=== PATIENT | female | born 1940 | race Caucasian/White ===

== ENCOUNTER 2017-05-08 05:36 | Day surgery (SDC) | payer MEDICARE, OTHER ==
[2017-05-08] MEDS ORDERED: CEFAZOLIN/Water 2 GM/20 ML SYRINGE ONE (06:08)
[2017-05-08] MEDS ORDERED: Tranexamic Acid 1,000 MG/100 ML BAG ONE (06:09)
[2017-05-08 06:15] LABS: Bilirubin Negative (Negative); Blood, Urine Negative (Negative); Clarity CLEAR (Clear); Glucose, Urine (Dipstick) Negative (Negative); Leukocyte Negative (Negative); Nitrite Negative (Negative); Protein, Urine (Dipstick) Negative (Neg-Trace); Specific Gravity, Urine 1.019 (1.002-1.036); Urobilinogen 0.2 mg/dL (0.2-1.0)
[2017-05-08] MEDS ORDERED: Vancomycin HCl 1.5 GM in Sodium Chloride 0.9% 250 ML 300 ML IVPB SCH ×2 (06:15→18:00)
[2017-05-08 06:18] LABS: Bacteria/HPF None Seen HPF (None Seen); Hyaline Casts/LPF 0-3 HYALINE CAST LPF (0-3 Hyaline); Pathc Cast-AUWi Flag 0.27 (0-2.49); RBC/HPF 0-3 HPF (0-3); WBC/HPF 0-3 HPF (0-3)
[2017-05-08] MEDS ORDERED: Fentanyl 100 MCG/2 ML VIAL ONE ×2 (06:24→06:26)
[2017-05-08] MEDS ORDERED: Midazolam HCl 2 mg/2 ml Vial ONE ×2 (06:24→06:26)
[2017-05-08] MEDS ORDERED: Bupivacaine PF 0.5% 30 ML VIAL ONE ×2 (06:37→11:51)
[2017-05-08] MEDS ORDERED: traMADol HCl 50 MG TAB PO PRN ×2 (07:08)
[2017-05-08] MEDS ORDERED: Zolpidem Tartrate 5 MG TAB PO PRN ×2 (07:08→09:16)
[2017-05-08] MEDS ORDERED: Promethazine HCl 25 MG/ML VIAL IM PRN ×3 (07:08→09:37)
[2017-05-08] MEDS ORDERED: Ondansetron HCl/PF 4 MG/2 ML Vial IVP PRN ×3 (07:08→09:37)
[2017-05-08] MEDS ORDERED: Acetaminophen 500 MG TAB PO PRN (07:08)
[2017-05-08] MEDS ORDERED: BUPIVACAINE IM SCH (07:15)
[2017-05-08] MEDS ORDERED: SODIUM CHLORIDE IM SCH (07:15)
[2017-05-08] MEDS ORDERED: ADMIXTURE FEE IM SCH (07:15)
[2017-05-08] MEDS ORDERED: diphenhydrAMINE 25 MG CAP PO PRN (09:16)
[2017-05-08] MEDS ORDERED: HYDROcodone/Acetaminophen 10/325 mg Tablet PO PRN ×2 (09:16)
[2017-05-08] MEDS ORDERED: Acetaminophen 325 MG TAB PO PRN (09:16)
[2017-05-08] MEDS ORDERED: Tranexamic Acid 1,000 MG in Sodium Chloride 0.9% 100 ML IVPB SCH (09:30)
[2017-05-08] MEDS ORDERED: Promethazine HCl 25 MG/ML VIAL SLOW IVP PRN (09:37)
[2017-05-08] MEDS ORDERED: HYDROmorphone 2 MG/ML VIAL SLOW IVP PRN (09:37)
--- NOTE | 2017-05-08 09:43 | OP ---
DATE OF PROCEDURE: 05/08/2017 PREOPERATIVE DIAGNOSIS: Right knee osteoarthrosis. POSTOPERATIVE DIAGNOSIS: Right knee osteoarthrosis. PROCEDURE PERFORMED: Right total knee arthroplasty using [employer] pinless navigation. SURGEON: Erlin Beckham M.D. ALIGNMENT MECHANIC: Toi Jones PA-C as well as Rula Rodrigues PA-C. BLOOD LOSS: Minimal. COMPLICATIONS: None. ANESTHESIA: She had a preoperative block. She had general anesthetic. DISPOSITION: She went to the recovery room in stable condition. IMPLANTS: To the right knee. The [employer] total knee system, the femur was size 4 cruciate retaining. Tibial baseplate was universal size 3. We used a 3 x 9 mm CSX3 tibial bearing and a sym metric 27 x 8 X3 patella. CONDITION: She did go to recovery room in stable condition. INDICATIONS: A 76-year-old female, who comes in complaining of right knee pain as well as stiffness. Patient at this time has failed all nonoperative treatment for knee arthritis and at this time wish ed to have knee replacement. PROCEDURE IN DETAIL: After all appropriate consent forms were explained and signed, the patient was taken back to the Operating Room and at this time was given general anesthetic. Once the level of an esthesia was appropriate, a well-padded tourniquet was placed on the right leg and the leg was then p repped and draped in standard surgical fashion. The limb was exsanguinated and tourniquet taken up t o 300 mmHg. Midline incision was made with a 10-blade down through the skin and subcutaneous tissue. Bovie electrocautery was used to coagulate any brisk venous bleeding. A new blade was used to make a medial parapatellar arthrotomy. Small subperiosteal release was performed medially and excess fat pad was removed. The knee was flexed up to gain access to the femur. The femur was navigated and d istal femoral resection was made. Epicondylar access was used to align our sizing jig and this was p inned in place. We sized our femur to be a size 4, 4:1 cutting block was applied and pinned. Anterio r and posterior chamfer cuts were then made. We navigated out our proximal tibia and made our proxim al tibial resection. Spreaders were used to remove any posterior osteophytes off the back of the fem ur as well as remaining meniscal tissue. A long alignment clarisa was then used to achieve correct rotat ion of our tibial baseplate and a size 3 was chosen. This was pinned in place. We trialed the polye thylene and a 3 x 9 mm CSX3 polyethylene gave us full extension and good stability throughout range o f motion. Two towel clips and a saw were used to cut our patella. Three lug nuts were drilled and a 27 x 8 X3 patella was trialed which sat nicely in the trochlear groove. We then drilled our femur a nd punched our tibia. All components were removed. The knee was thoroughly irrigated and dried. Ce ment was mixed into the cement gun on the back table. Components were then placed. The knee was hel d out in full extension until the cement had dried. All excess bone cement was removed. Multiple #2 Vicryl stitches as well as a Quill was used to close our extensor mechanism. 0 Quill followed by a running Monoderm was then used to close the skin. Surgicel glue was then used on the skin. Once thi s had dried, soft tissue dressing was applied to the limb, tourniquet was let down, and the toes pink ed up nicely. The patient was then awakened and taken to the Recovery Room in stable condition. All counts were correct at the end of the case. The patient did receive preoperative IV antibiotics. T he patient was injected with Exparel for postoperative pain relief.
[2017-05-08] MEDS: Ketorolac Tromethamine 30 MG/ML VIAL IVP SCH ×2 (11:34→16:59)
[2017-05-08] MEDS: Sodium Chloride 0.9% 1,000 ML IV SCH ×2 (11:37→21:23)
[2017-05-08] MEDS ORDERED: Bupivacaine 0.25% 10 ML VIAL ONE (11:51)
[2017-05-08] MEDS ORDERED: Lidocaine 1% PF 5 ML VIAL ONE (11:52)
[2017-05-08] MEDS ORDERED: Ondansetron HCl/PF 4 MG/2 ML Vial ONE (11:52)
[2017-05-08] MEDS ORDERED: Dexamethasone 20 MG/5 ML VIAL ONE (11:52)
[2017-05-08] MEDS ORDERED: PHENYLEPHRINE-NS 100 MCG/ML 10 ML SYRINGE ONE (11:52)
[2017-05-08] MEDS ORDERED: Propofol 200 MG/20 ML VIAL ONE (11:52)
[2017-05-08] MEDS ORDERED: ePHEDrine/0.9% NaCl/PF SYRINGE 50 mg/10 ml ONE (11:52)
[2017-05-08 11:54] VITALS: BMI 34.0
[2017-05-08] MEDS: CEFAZOLIN/Water 2 GM/20 ML SYRINGE SLOW IVP SCH ×2 (14:28→21:56)
[2017-05-08] MEDS ORDERED: Dextrose 50% Abboject 50 ML SYRINGE SLOW IVP PRN (14:32)
[2017-05-08] MEDS ORDERED: HumaLOG 300 UNITS/3 ML VIAL SC PRN (14:32)
[2017-05-08] MEDS ORDERED: Dextrose 5% in Water 1,000 ML IV PRN (14:32)
--- NOTE | 2017-05-08 18:19 | CON ---
DATE OF CONSULTATION: 05/08/2017 REASON FOR CONSULTATION: Medical management. HISTORY OF PRESENT ILLNESS: Ms. Tammy Menard is a 76-year-old female with a past medical history of hypertension, hyperlipidemia, type 2 diabetes mellitus, DMITRIY and restless leg syndrome who was adm itted for right knee arthroplasty. Medical team was consulted for management of her chronic medical conditions. On interview, she really denies any symptoms. She reports that she has no chest pain. She denies chest pain, shortness of breath, lightheadedness. She has no abdominal or urinary symptom s. REVIEW OF SYSTEMS: Constitutional: Denies headaches, weakness, weight loss. HEENT: Denies changes in vision, ear pain , discharge or nasal congestion. Respiratory: Negative. Cardiovascular: Negative. Abdomen: Nega tive. Genitourinary: Denies dysuria, hematuria, urgency or frequency. Musculoskeletal: Positive f or knee pain. Skin: Negative. Hematology: Negative. Allergy/immunology: Negative. Neurologic: Negative. Psychiatric: Negative. PHYSICAL EXAMINATION: VITAL SIGNS: Stable. Temperature 96.7 degree Fahrenheit, pulse 80, respiratory rate 18, oxygen satu ration 96% on room air, blood pressure 120/79. GENERAL: Not in acute distress, sitting comfortably in bed. HEENT: Normocephalic, atraumatic. Not pale, anicteric. EOMI. PERRLA RESPIRATORY: Vesicular breath sound bilaterally. No wheezes or rales. CARDIOVASCULAR: S1 and S2 only. No murmurs, rubs or gallops. GASTROINTESTINAL: Bowel sounds positive, nontender, nondistended, no organomegaly. GENITOURINARY: Deferred. MUSCULOSKELETAL: Right knee covered and clean, dry dressing. SKIN: No rashes or lesions. NEUROLOGIC: Alert and well oriented. No focal deficits. PSYCHIATRIC: Normal mood and affect. LABORATORY DATA: Chemistry with random blood glucose of 190. Urinalysis is unremarkable. ASSESSMENT: 1. Hypertension. 2. Hyperlipidemia. 3. Type 2 diabetes mellitus. 4. Obstructive sleep apnea. 5. Restless leg syndrome. 6. Status post right knee arthroplasty. The patient is doing well postop. Blood glucose is around goal, would continue her home regimen. In addition, we will add fingerstick glucose before meals and at bedtime, sliding scale insulin, and hy perglycemia protocol. In addition, patient will be continued on a diabetic diet for high blood press ure. Her home medications can be continued with her blood pressure monitored closely. She is curren sarahy at goal. Of note, we will get a.m. labs and check in the morning.
[2017-05-08] MEDS: Ferrous Gluconate 324 MG TAB PO SCH (20:41)
[2017-05-08] MEDS ORDERED: Non-Formulary Item 1 EACH (Ezetimibe/Simvastatin [Vytorin] 1 TABLET) PO SCH (21:00)
[2017-05-08] MEDS: metFORMIN 500 MG TAB PO SCH (21:12)
[2017-05-08] MEDS: Calcium Carbonate + Vit D 1 TAB PO SCH (21:12)
[2017-05-08] MEDS: Ferrous Sulfate 325 MG TAB PO SCH (21:12)
[2017-05-08] MEDS: Atorvastatin Calcium 20 MG TAB PO SCH (21:13)
[2017-05-08] MEDS: Aspirin 81 mg Enteric Coated Tablet PO SCH (21:13)
[2017-05-08] MEDS: glyBURIDE 5 MG TAB PO SCH (21:13)
[2017-05-08] MEDS: Senokot S 8.6-50 MG TAB PO SCH (21:15)
[2017-05-08] MEDS: TROSPIUM 20 MG TABLET PO SCH (21:24)
[2017-05-08] MEDS: SODIUM CHLORIDE EPIDURAL SCH (22:14)
[2017-05-08] MEDS: ADMIXTURE FEE EPIDURAL SCH (22:14)
[2017-05-08] MEDS: BUPIVACAINE 0.75% EPIDURAL SCH (22:14)
[2017-05-08] MEDS: traMADol HCl 50 MG TAB PO PRN (22:19)
[2017-05-09] MEDS: Ketorolac Tromethamine 30 MG/ML VIAL IVP SCH ×4 (00:14→17:10)
[2017-05-09] MEDS: Fentanyl 100 MCG/2 ML VIAL IV PRN ×3 (02:04→19:55)
[2017-05-09] MEDS: Sodium Chloride 0.9% 1,000 ML IV SCH ×2 (02:49→14:49)
[2017-05-09 04:55] LABS: #Eosinphils 0.1 thou/uL (0.0-0.7); #Lymphocytes 1.5 thou/uL (1.20-3.40); #Monocytes 0.8 thou/uL (0.11-0.59); #Neutrophils 3.6 thou/uL (1.40-6.50); %Basophils 0.4 % (0.0-1.0); %Eosinophils 2.2 % (0.0-10.0); %Monocytes 12.5 % (0.0-10.0); %Neutrophils 59.9 % (42.0-75.0); Mean Corpuscular HGB CONC 33.4 g/dL (32.0-36.0); Mean Corpuscular Hemoglobin 33.2 pg (27.0-31.0); Mean Corpuscular Volume 99.6 fl (81.0-99.0); Mean Platelet Volume 6.2 fL (7.4-10.4); Platelet Count 230 thou/uL (130-400); RBC Distribution Width 11.6 % (11.5-14.5); Red Blood Cell (RBC) Count 3.02 mill/uL (4.20-5.40); White Blood Cell (WBC) Count 6.1 thou/uL (4.8-10.8)
[2017-05-09 05:08] LABS: Anion Gap 12 mmol/L (10-20); BUN (Urea Nitrogen) 16 mg/dL (9.8-20.1); Calc. Creatinine Clearance 101 mL/min (70-130); Carbon Dioxide 29 mmol/L (23-31); Chloride 102 mmol/L (98-107); Estimated GFR-MDRD 86; Glucose 105 mg/dL (83-110); Potassium 3.9 mmol/L (3.5-5.1); Sodium 139 mmol/L (136-145)
[2017-05-09] MEDS: traMADol HCl 50 MG TAB PO PRN ×3 (06:11→20:00)
[2017-05-09] MEDS: Alogliptin 25 MG TAB PO SCH (08:14)
[2017-05-09] MEDS: Calcium Carbonate + Vit D 1 TAB PO SCH ×2 (08:14→20:05)
[2017-05-09] MEDS: Pioglitazone HCl 15 MG TAB PO SCH (08:14)
[2017-05-09] MEDS: Multivitamin W/ Minerals 1 TAB PO SCH (08:15)
[2017-05-09] MEDS: metFORMIN 500 MG TAB PO SCH ×2 (08:15→19:59)
[2017-05-09] MEDS: Senokot S 8.6-50 MG TAB PO SCH ×2 (08:15→20:06)
[2017-05-09] MEDS: Aspirin 81 mg Enteric Coated Tablet PO SCH ×2 (08:15→20:04)
[2017-05-09] MEDS: Docusate 100 MG CAP PO SCH (08:15)
[2017-05-09] MEDS: Ezetimibe 10 MG TAB PO SCH (08:15)
[2017-05-09] MEDS: Venlafaxine HCl XR 75 MG CAP PO SCH (08:15)
[2017-05-09] MEDS: Ascorbic Acid 500 mg Chewable Tablet PO SCH (08:16)
[2017-05-09] MEDS: Ferrous Sulfate 325 MG TAB PO SCH ×2 (08:16→20:00)
[2017-05-09] MEDS: Ferrous Gluconate 324 MG TAB PO SCH ×2 (08:16→20:05)
[2017-05-09] MEDS ORDERED: [UNRECOGNIZED DRUG - REMARK] EA NARE SCH (09:00)
[2017-05-09] MEDS: Fluticasone Propionate Nasal Spray 16 gm Bottle NASAL SCH (10:26)
[2017-05-09] MEDS: TROSPIUM 20 MG TABLET PO SCH ×2 (11:03→19:59)
[2017-05-09] MEDS: glyBURIDE 5 MG TAB PO SCH ×2 (11:03→19:58)
[2017-05-09] MEDS: BUPIVACAINE 0.75% EPIDURAL SCH ×2 (11:04→20:10)
[2017-05-09] MEDS: ADMIXTURE FEE EPIDURAL SCH ×2 (11:04→20:10)
[2017-05-09] MEDS: SODIUM CHLORIDE EPIDURAL SCH ×2 (11:04→20:10)
--- NOTE | 2017-05-09 12:17 | PRG ---
DATE OF SERVICE: 05/09/2017 SUBJECTIVE: Tammy is a 76-year-old female who is postop day #1 from a right total knee arthroplast y. Her preoperative stay included preexisting history of diabetes and she has been shown to be littl e labile since admission, also her who is at the bedside does account for history of her havi ng more recent falls and unsteadiness[place] First impression was to attempt outpatient rehab, but I think this surgery has been a little more than she was expecting. LABORATORY DATA: Her blood glucose was 97, but is read as high as 206 last night. Sodium 139, potas sium 3.9, BUN 16, creatinine 0.67, hemoglobin and hematocrit 10 and 30 respectively. PHYSICAL EXAMINATION: She is alert and oriented to person, place, time, and situation, and appropria te with examiner. She has good dorsiflexion, inversion, eversion with full digital excursion. Incis ion is clean, no strikethrough. IMPRESSION: A 76-year-old white female with labile diabetes type 2. Fall risk postoperative day #1 right total knee arthroplasty. PLAN: We will change her to regular admit. Obtain a casework manager consult with intentions for skille d bed placement.
[2017-05-09] MEDS: Atorvastatin Calcium 20 MG TAB PO SCH (20:00)
[2017-05-09] MEDS: Valsartan 80 MG TAB PO SCH (20:06)
[2017-05-10] MEDS: Ketorolac Tromethamine 30 MG/ML VIAL IVP SCH ×2 (00:17→06:36)
[2017-05-10] MEDS: Sodium Chloride 0.9% 1,000 ML IV SCH ×3 (02:06→23:24)
[2017-05-10] MEDS: traMADol HCl 50 MG TAB PO PRN ×3 (02:17→21:55)
[2017-05-10 07:28] LABS: Hemoglobin 10.3 g/dL (12.0-16.0); Mean Corpuscular Hemoglobin 32.8 pg (27.0-31.0); Mean Corpuscular Volume 99.5 fl (81.0-99.0); Mean Platelet Volume 6.4 fL (7.4-10.4); Platelet Count 251 thou/uL (130-400); RBC Distribution Width 11.5 % (11.5-14.5); Red Blood Cell (RBC) Count 3.14 mill/uL (4.20-5.40); White Blood Cell (WBC) Count 8.2 thou/uL (4.8-10.8)
[2017-05-10] MEDS: Docusate 100 MG CAP PO SCH (08:00)
[2017-05-10] MEDS: Ferrous Gluconate 324 MG TAB PO SCH ×2 (08:00→21:52)
[2017-05-10] MEDS: metFORMIN 500 MG TAB PO SCH ×2 (08:00→21:53)
[2017-05-10] MEDS: Alogliptin 25 MG TAB PO SCH (08:00)
[2017-05-10] MEDS: Senokot S 8.6-50 MG TAB PO SCH ×2 (08:00→21:53)
[2017-05-10] MEDS: Ezetimibe 10 MG TAB PO SCH (08:00)
[2017-05-10] MEDS: Calcium Carbonate + Vit D 1 TAB PO SCH ×2 (08:01→21:52)
[2017-05-10] MEDS: Multivitamin W/ Minerals 1 TAB PO SCH (08:01)
[2017-05-10] MEDS: Pioglitazone HCl 15 MG TAB PO SCH (08:01)
[2017-05-10] MEDS: Ferrous Sulfate 325 MG TAB PO SCH ×2 (08:01→21:58)
[2017-05-10] MEDS: Venlafaxine HCl XR 75 MG CAP PO SCH (08:01)
[2017-05-10] MEDS: Ascorbic Acid 500 mg Chewable Tablet PO SCH (08:01)
[2017-05-10] MEDS: Aspirin 81 mg Enteric Coated Tablet PO SCH ×2 (08:01→21:52)
[2017-05-10] MEDS: Fluticasone Propionate Nasal Spray 16 gm Bottle NASAL SCH (08:02)
[2017-05-10] MEDS: glyBURIDE 5 MG TAB PO SCH ×2 (08:02→22:05)
[2017-05-10] MEDS: TROSPIUM 20 MG TABLET PO SCH ×2 (11:21→21:54)
[2017-05-10] MEDS: Atorvastatin Calcium 20 MG TAB PO SCH (21:52)
[2017-05-10] MEDS: Valsartan 80 MG TAB PO SCH (21:54)
[2017-05-11 06:11] LABS: Hemoglobin 10.3 g/dL (12.0-16.0); Mean Corpuscular HGB CONC 32.9 g/dL (32.0-36.0); Mean Corpuscular Hemoglobin 32.2 pg (27.0-31.0); Mean Platelet Volume 6.1 fL (7.4-10.4); Platelet Count 255 thou/uL (130-400); RBC Distribution Width 11.7 % (11.5-14.5); Red Blood Cell (RBC) Count 3.19 mill/uL (4.20-5.40); White Blood Cell (WBC) Count 10.1 thou/uL (4.8-10.8)
[2017-05-11] MEDS: traMADol HCl 50 MG TAB PO PRN ×2 (08:30→14:16)
[2017-05-11] MEDS: Ferrous Gluconate 324 MG TAB PO SCH (08:32)
[2017-05-11] MEDS: metFORMIN 500 MG TAB PO SCH (08:32)
[2017-05-11] MEDS: Ezetimibe 10 MG TAB PO SCH (08:32)
[2017-05-11] MEDS: Pioglitazone HCl 15 MG TAB PO SCH (08:32)
[2017-05-11] MEDS: Senokot S 8.6-50 MG TAB PO SCH (08:32)
[2017-05-11] MEDS: Ascorbic Acid 500 mg Chewable Tablet PO SCH (08:32)
[2017-05-11] MEDS: Ferrous Sulfate 325 MG TAB PO SCH (08:33)
[2017-05-11] MEDS: Calcium Carbonate + Vit D 1 TAB PO SCH (08:33)
[2017-05-11] MEDS: Docusate 100 MG CAP PO SCH (08:33)
[2017-05-11] MEDS: Multivitamin W/ Minerals 1 TAB PO SCH (08:33)
[2017-05-11] MEDS: Venlafaxine HCl XR 75 MG CAP PO SCH (08:33)
[2017-05-11] MEDS: Aspirin 81 mg Enteric Coated Tablet PO SCH (08:33)
[2017-05-11] MEDS: Alogliptin 25 MG TAB PO SCH (08:33)
[2017-05-11] MEDS: Sodium Chloride 0.9% 1,000 ML IV SCH ×2 (08:37→11:11)
[2017-05-11] MEDS: Fluticasone Propionate Nasal Spray 16 gm Bottle NASAL SCH (08:39)
[2017-05-11] MEDS: glyBURIDE 5 MG TAB PO SCH (11:01)
[2017-05-11] MEDS: TROSPIUM 20 MG TABLET PO SCH (11:01)
[2017-05-11 12:09] VITALS: BP 116/73; TEMP 98.2
== END 2017-05-11 15:09 ==
LOC: SDC 05:36 → SJJU 09:16 → SDC 05-11 15:09
PROVIDERS: ATTEND Orthopaedic Surgery
PROC: 0SRD0JZ Replacement of Left Knee Joint with Synthetic Substitute, Open Approach (ICD-10-PCS; principal; 2017-05-08)
DX: M17.11 Unilateral primary osteoarthritis, right knee (principal); I10 Essential (primary) hypertension; E78.5 Hyperlipidemia, unspecified; E11.9 Type 2 diabetes mellitus without complications; G47.33 Obstructive sleep apnea (adult) (pediatric); G25.81 Restless legs syndrome; Z88.5 Allergy status to narcotic agent
CPT/HCPCS: 27447; 80048; 81001; 82962; 85025; 85027; 86850; 86900; 86901; 97110 ×2; 97116 ×4; 97139 ×2; 97150; 97530 ×4; C1713; C1776; G8978; G8979; 36415; 36416; J1100; J1885; J2001; J2250; J2405; J2704; J3010; J3370; J3490; J7050; S0020